=== PATIENT | male | born 1960 | race Asian ===

== ENCOUNTER 2017-05-06 17:57 | Inpatient (IN) | payer OTHER ==
[~2017-05-06] VITALS: Ht 170.2 cm; Wt 49.0 kg
[~2017-05-06 17:57] MED LIST: AMIO200T44 PO; ASPI81TA42 PO; ATOR40TA28 PO; CARV6 PO; DSS100 PO; FURO40 PO; INSLAN SQ; INSNOV SQ; LISI-662 PO; NIFE90TA45 PO
[2017-05-06 18:52] LABS: GLUCOSE,POINT OF CARE 169 MG/DL (70-110)
[2017-05-06] MEDS ORDERED: HYDROmorphone 2 MG/ML SYRINGE IVP ONE (19:15)
[2017-05-06] MEDS ORDERED: ACETAMINOPHEN 500 MG TABLET PO ONE (19:15)
[2017-05-06] MEDS ORDERED: ONDANSETRON HCL 4 MG/2 ML VIAL IVP ONE (19:15)
[2017-05-06] MEDS ORDERED: SODIUM CHLORIDE 0.9% 250 ML IV ONE (19:15)
[2017-05-06 20:02] LABS: EOSINOPHILS % (AUTO) 0.1 % (1.0-6.0); HEMATOCRIT 28.9 % (41-53); HEMOGLOBIN 9.5 g/dL (13.5-17.5); LYMPHOCYTES # (AUTO) 0.2 K/uL (1.0-4.8); MEAN CORPUSCULAR HEMOGLOBIN 31.7 pg (26.0-34.0); MEAN CORPUSCULAR HGB CONC 32.9 G/dL (31.0-37.0); MEAN CORPUSCULAR VOLUME 96 fL (80-100); MONOCYTES # (AUTO) 0.5 K/uL (0.1-1.0); MONOCYTES % (AUTO) 6.9 % (2.0-9.0); NEUTROPHILS # (AUTO) 6.3 K/uL (1.8-7.7); PLATELET COUNT (AUTO) 217 K/uL (150-450); RED CELL DISTRIBUTION WIDTH 16.7 % (11.5-14.5)
[2017-05-06 20:04] LABS: CALCIUM, TOTAL 8.4 mg/dL (8.8-10.5); CREATININE 2.45 mg/dL (0.60-1.30); POTASSIUM 3.7 mmol/L (3.5-5.1)
[2017-05-06 20:10] LABS: ALBUMIN 2.9 g/dL (3.4-5.0); BILIRUBIN,TOTAL 0.8 mg/dL (0.1-1.0); TOTAL PROTEIN, SERUM 6.6 g/dL (6.4-8.2)
[2017-05-06 20:19] LABS: LACTIC ACID 0.6 mmol/L (0.4-2.0)
[2017-05-06 20:21] LABS: RBC MORPHOLOGY COMMENT NORMAL RBC MORPH
[2017-05-06] MEDS ORDERED: ACETAMINOPHEN 325 MG TABLET PO PRN ×2 (20:45→21:30)
[2017-05-06] MEDS ORDERED: CefTRIAXone 1 GM/DEXTROSE 50 ML IV ONE (20:45)
[2017-05-06] MEDS ORDERED: ONDANSETRON HCL 4 MG/2 ML VIAL IVP PRN (20:45)
[2017-05-06] MEDS ORDERED: 0.9% SODIUM CHLORIDE 10 ML SYRINGE IVP PRN (20:45)
[2017-05-06 21:08] LABS: PROCALCITONIN (PCT) 6.14 ng/mL (<0.50)
[2017-05-06] MEDS ORDERED: DEXTROSE 50%-WATER 25 GM/50 ML SYRINGE IVP PRN (21:30)
[2017-05-06] MEDS ORDERED: ALBUTEROL SULFATE 2.5 MG/0.5 ML NEB SOLUTION NEB PRN (21:30)
[2017-05-06 21:51] VITALS: BP 105/52
[2017-05-07] VITALS (7 sets, daily range): BP systolic 100–131; BP diastolic 49–59
[2017-05-07] MEDS: INSULIN ASPART 100 UNITS/ML SQ PRN ×2 (06:11→22:08)
[2017-05-07 06:50] LABS: EOSINOPHILS % (AUTO) 0.3 % (1.0-6.0); HEMATOCRIT 28.5 % (41-53); HEMOGLOBIN 9.3 g/dL (13.5-17.5); LYMPHOCYTES # (AUTO) 0.3 K/uL (1.0-4.8); LYMPHOCYTES % (AUTO) 4.2 % (22.0-44.0); MEAN CORPUSCULAR HGB CONC 32.7 G/dL (31.0-37.0); MEAN CORPUSCULAR VOLUME 98 fL (80-100); MONOCYTES # (AUTO) 0.6 K/uL (0.1-1.0); MONOCYTES % (AUTO) 8.4 % (2.0-9.0); NEUTROPHILS # (AUTO) 6.5 K/uL (1.8-7.7); PLATELET COUNT (AUTO) 193 K/uL (150-450); RED BLOOD CELL COUNT(AUTO) 2.91 MIL/uL (4.50-5.90); RED CELL DISTRIBUTION WIDTH 16.9 % (11.5-14.5); WHITE BLOOD COUNT (AUTO) 7.5 K/uL (4.5-11.0)
[2017-05-07 07:01] LABS: NEUTROPHILS % (AUTO) 87.1 % (40.0-70.0)
[2017-05-07 07:37] LABS: CALCIUM, TOTAL 8.1 mg/dL (8.8-10.5); CREATININE 2.89 mg/dL (0.60-1.30); POTASSIUM 3.5 mmol/L (3.5-5.1)
[2017-05-07] MEDS: PANTOPRAZOLE SODIUM 40 MG DR TABLET PO SCH (08:24)
[2017-05-07] MEDS: HEPARIN SODIUM,PORCINE 5,000 UNITS/ML VIAL SQ SCH ×2 (08:25→20:22)
[2017-05-07] MEDS: ASPIRIN 81 MG CHEWABLE TABLET PO SCH (08:25)
[2017-05-07] MEDS: DOCUSATE SODIUM 100 MG CAPSULE PO SCH ×2 (08:25→20:22)
[2017-05-07 08:57] LABS: GLUCOSE,POINT OF CARE 156 MG/DL (70-110)
[2017-05-07 18:02] LABS: GLUCOSE,POINT OF CARE 135 MG/DL (70-110)
[2017-05-07 18:07] LABS: GLUCOSE,POINT OF CARE 138 MG/DL (70-110)
[2017-05-07] MEDS ORDERED: SODIUM CHLORIDE 0.9% 50 ML ONE (20:20)
[2017-05-07] MEDS: OXYGEN THERAPY IH SCH (20:21)
[2017-05-07] MEDS: ATORVASTATIN CALCIUM 20 MG TABLET PO SCH (20:22)
[2017-05-07] MEDS ORDERED: CefTRIAXone 1 GM/DEXTROSE 50 ML IV SCH (21:00)
[2017-05-07 21:47] LABS: GLUCOSE,POINT OF CARE 129 MG/DL (70-110)
[2017-05-08] MEDS ORDERED: PIPERACILLIN SODIUM/TAZOBACTAM 0.75 GM in DEXTROSE 5%-WATER 50 ML IV PRN (02:45)
[2017-05-08 04:21] VITALS: BP 140/63
[2017-05-08] MEDS: BISACODYL 10 MG RECTAL RECTAL SUPPOSITORY PR PRN (06:38)
[2017-05-08 06:47] LABS: GLUCOSE,POINT OF CARE 115 MG/DL (70-110)
[2017-05-08 07:23] VITALS: BP 144/64
[2017-05-08] MEDS: OXYGEN THERAPY IH SCH ×2 (08:20→20:18)
[2017-05-08] MEDS: PIPERACILLIN SODIUM/TAZOBACTAM 2.25 GM in DEXTROSE 5%-WATER 50 ML IV SCH ×2 (08:21→20:20)
[2017-05-08] MEDS: DOCUSATE SODIUM 100 MG CAPSULE PO SCH ×2 (08:47→20:20)
[2017-05-08] MEDS: PANTOPRAZOLE SODIUM 40 MG DR TABLET PO SCH (08:47)
[2017-05-08] MEDS: HEPARIN SODIUM,PORCINE 5,000 UNITS/ML VIAL SQ SCH ×2 (08:49→20:21)
[2017-05-08] MEDS: OxyCODONE HCL/ACETAMINOPHEN 5-325 MG TABLET PO PRN (08:49)
[2017-05-08] MEDS: ASPIRIN 81 MG CHEWABLE TABLET PO SCH (09:00)
[2017-05-08] MEDS ORDERED: -POST HEMODIALYSIS NOTE- MISC SCH (09:00)
[2017-05-08] MEDS ORDERED: BARIUM SULFATE 0.1% SUSPENSION 450 ML BOTTLE ONE (10:07)
[2017-05-08 11:30] VITALS: BP 138/64
[2017-05-08 15:38] VITALS: BP 142/66
[2017-05-08 19:30] VITALS: BP 149/72
[2017-05-08] MEDS: ATORVASTATIN CALCIUM 20 MG TABLET PO SCH (20:20)
[2017-05-09 00:03] VITALS: BP 146/64
[2017-05-09 02:07] LABS: GLUCOSE,POINT OF CARE 113 MG/DL (70-110)
[2017-05-09 02:11] LABS: GLUCOSE,POINT OF CARE 118 MG/DL (70-110)
[2017-05-09 02:22] LABS: GLUCOSE,POINT OF CARE 110 MG/DL (70-110)
[2017-05-09 04:06] VITALS: BP 150/70
[2017-05-09] MEDS ORDERED: VANCOMYCIN HCL 1 GM/D5% WATER 200 ML IV PRN (06:30)
[2017-05-09 06:36] LABS: HEMATOCRIT 30.2 % (41-53); HEMOGLOBIN 10.1 g/dL (13.5-17.5); MEAN CORPUSCULAR HEMOGLOBIN 31.8 pg (26.0-34.0); MEAN CORPUSCULAR HGB CONC 33.2 G/dL (31.0-37.0); MEAN CORPUSCULAR VOLUME 96 fL (80-100); PLATELET COUNT (AUTO) 175 K/uL (150-450); RED BLOOD CELL COUNT(AUTO) 3.16 MIL/uL (4.50-5.90); RED CELL DISTRIBUTION WIDTH 17.2 % (11.5-14.5)
[2017-05-09 06:46] LABS: INR 1.3 (0.9-1.1); PROTHROMBIN TIME 13.2 SEC (9.4-11.6)
[2017-05-09 06:56] LABS: ALBUMIN 2.6 g/dL (3.4-5.0); BILIRUBIN,TOTAL 0.6 mg/dL (0.1-1.0); CALCIUM, TOTAL 8.1 mg/dL (8.8-10.5); CREATININE 4.36 mg/dL (0.60-1.30); POTASSIUM 4.2 mmol/L (3.5-5.1); TOTAL PROTEIN, SERUM 6.1 g/dL (6.4-8.2)
[2017-05-09] MEDS ORDERED: VANCOMYCIN HCL 1 GM/D5% WATER 200 ML IV ONE (07:30)
[2017-05-09 08:00] VITALS: BP 147/67
[2017-05-09 08:37] LABS: GLUCOSE,POINT OF CARE 98 MG/DL (70-110)
[2017-05-09] MEDS ORDERED: MANNITOL 25%-12.5 GM/50 ML VIAL IVP PRN (09:00)
[2017-05-09] MEDS ORDERED: LIDOCAINE HCL/PF 1% 2 ML VIAL ID PRN (09:00)
[2017-05-09 10:36] LABS: BAND NEUTROPHILS % (MANUAL) 15 % (1-5); LYMPHOCYTES % (MANUAL) 17 % (22-44); TOTAL CELLS COUNTED 100
[2017-05-09 10:37] LABS: RBC MORPHOLOGY COMMENT ABNORMAL RBC MORPH
[2017-05-09 11:29] VITALS: BP 148/77
[2017-05-09] MEDS ORDERED: VANCOMYCIN HCL 500 MG in DEXTROSE 5%-WATER 100 ML IV ONE (12:00)
[2017-05-09] MEDS: ASPIRIN 81 MG CHEWABLE TABLET PO SCH (13:07)
[2017-05-09] MEDS: DOCUSATE SODIUM 100 MG CAPSULE PO SCH ×2 (13:07→20:41)
[2017-05-09] MEDS: PANTOPRAZOLE SODIUM 40 MG DR TABLET PO SCH (13:07)
[2017-05-09] MEDS: EPOETIN ALFA 10,000 UNITS/ML VIAL SQ SCH (13:07)
[2017-05-09] MEDS: OXYGEN THERAPY IH SCH ×2 (13:07→20:41)
[2017-05-09] MEDS: HEPARIN SODIUM,PORCINE 5,000 UNITS/ML VIAL SQ SCH ×2 (13:08→20:42)
[2017-05-09 15:11] VITALS: BP 161/69
[2017-05-09] MEDS ORDERED: SODIUM CHLORIDE 0.9% 500 ML IV ONE (15:27)
[2017-05-09] MEDS: CefTRIAXone 1 GM/DEXTROSE 50 ML IV SCH (16:07)
[2017-05-09] MEDS ORDERED: LIDOCAINE HCL/PF 1% 2 ML VIAL IM ONE (16:57)
[2017-05-09 17:17] LABS: APPEARANCE,UNSPUN,BODY FLUID CLOUDY (CLEAR); COLOR,BODY FLUID YELLOW (LT YELLOW)
[2017-05-09 17:18] LABS: OTHER CELLS,BODY FLUID MESOTHELIALS
[2017-05-09] MEDS: INSULIN ASPART 100 UNITS/ML SQ PRN (17:52)
[2017-05-09 19:48] VITALS: BP 133/59
[2017-05-09 20:02] LABS: GLUCOSE,POINT OF CARE 126 MG/DL (70-110)
[2017-05-09] MEDS: ATORVASTATIN CALCIUM 20 MG TABLET PO SCH (20:41)
[2017-05-10 00:12] VITALS: BP 147/69
[2017-05-10 04:19] VITALS: BP 168/79
[2017-05-10 07:32] VITALS: BP 153/66
[2017-05-10] MEDS: HEPARIN SODIUM,PORCINE 5,000 UNITS/ML VIAL SQ SCH ×2 (08:47→20:11)
[2017-05-10] MEDS: OXYGEN THERAPY IH SCH ×2 (08:48→20:11)
[2017-05-10] MEDS: PANTOPRAZOLE SODIUM 40 MG DR TABLET PO SCH (08:52)
[2017-05-10] MEDS: DOCUSATE SODIUM 100 MG CAPSULE PO SCH ×2 (08:52→20:11)
[2017-05-10] MEDS: ASPIRIN 81 MG CHEWABLE TABLET PO SCH (08:52)
[2017-05-10] MEDS ORDERED: VANCOMYCIN HCL 1 GM/D5% WATER 200 ML IV ONE (09:00)
[2017-05-10 11:16] VITALS: BP 150/69
[2017-05-10] MEDS ORDERED: NYSTATIN 500,000 UNITS/5 ML SUSPENSION UDCUP PO SCH ×2 (11:45→12:00)
[2017-05-10] MEDS: INSULIN ASPART 100 UNITS/ML SQ PRN ×4 (12:21→20:20)
[2017-05-10] MEDS: CefTRIAXone 1 GM/DEXTROSE 50 ML IV SCH (12:38)
[2017-05-10 15:32] VITALS: BP 135/66
[2017-05-10] MEDS: NYSTATIN 500,000 UNITS/5 ML SUSPENSION UDCUP PO SCH (17:09)
[2017-05-10 19:43] VITALS: BP 144/67
[2017-05-10] MEDS: ATORVASTATIN CALCIUM 20 MG TABLET PO SCH (20:11)
[2017-05-11] VITALS (7 sets, daily range): BP systolic 133–160; BP diastolic 60–79
[2017-05-11] MEDS: NYSTATIN 500,000 UNITS/5 ML SUSPENSION UDCUP PO SCH ×4 (00:27→18:03)
[2017-05-11 01:36] LABS: GLUCOSE COMMENT 1 Received Meds; GLUCOSE,POINT OF CARE 166 MG/DL (70-110)
[2017-05-11 01:46] LABS: GLUCOSE COMMENT 1 Received Meds; GLUCOSE,POINT OF CARE 179 MG/DL (70-110)
[2017-05-11 06:10] LABS: BASOPHILS % (AUTO) 0.1 % (0.0-2.0); HEMATOCRIT 30.6 % (41-53); HEMOGLOBIN 10.3 g/dL (13.5-17.5); LYMPHOCYTES # (AUTO) 0.4 K/uL (1.0-4.8); LYMPHOCYTES % (AUTO) 4.9 % (22.0-44.0); MEAN CORPUSCULAR HEMOGLOBIN 31.9 pg (26.0-34.0); MEAN CORPUSCULAR HGB CONC 33.6 G/dL (31.0-37.0); MEAN CORPUSCULAR VOLUME 95 fL (80-100); MONOCYTES # (AUTO) 0.5 K/uL (0.1-1.0); MONOCYTES % (AUTO) 6.5 % (2.0-9.0); NEUTROPHILS # (AUTO) 6.3 K/uL (1.8-7.7); PLATELET COUNT (AUTO) 183 K/uL (150-450); RED BLOOD CELL COUNT(AUTO) 3.22 MIL/uL (4.50-5.90); RED CELL DISTRIBUTION WIDTH 17.2 % (11.5-14.5); WHITE BLOOD COUNT (AUTO) 7.3 K/uL (4.5-11.0)
[2017-05-11 06:56] LABS: NEUTROPHILS % (AUTO) 86.5 % (40.0-70.0)
[2017-05-11 07:18] LABS: CALCIUM, TOTAL 8.1 mg/dL (8.8-10.5); CREATININE 4.18 mg/dL (0.60-1.30); POTASSIUM 3.9 mmol/L (3.5-5.1)
[2017-05-11 07:50] LABS: RBC MORPHOLOGY COMMENT ABNORMAL RBC MORPH
[2017-05-11] MEDS: DOCUSATE SODIUM 100 MG CAPSULE PO SCH ×2 (07:58→20:08)
[2017-05-11] MEDS: PANTOPRAZOLE SODIUM 40 MG DR TABLET PO SCH (07:58)
[2017-05-11] MEDS: ASPIRIN 81 MG CHEWABLE TABLET PO SCH (07:58)
[2017-05-11] MEDS: EPOETIN ALFA 10,000 UNITS/ML VIAL SQ SCH (07:58)
[2017-05-11] MEDS: HEPARIN SODIUM,PORCINE 5,000 UNITS/ML VIAL SQ SCH ×2 (07:58→20:08)
[2017-05-11] MEDS: OXYGEN THERAPY IH SCH ×2 (07:59→20:17)
[2017-05-11] MEDS ORDERED: SODIUM CHLORIDE 0.9% 2,000 ML IV ONE (08:21)
[2017-05-11] MEDS ORDERED: ALBUMIN HUMAN 25%-12.5GM/50ML IV BOTTLE IV PRN (10:15)
[2017-05-11] MEDS ORDERED: MANNITOL 25%-12.5 GM/50 ML VIAL IVP PRN (10:15)
[2017-05-11] MEDS ORDERED: LIDOCAINE HCL/PF 1% 2 ML VIAL ID PRN (10:15)
[2017-05-11] MEDS: VITAMIN B COMP/VIT C/FOLIC ACID CAPSULE PO SCH (11:30)
[2017-05-11] MEDS ORDERED: LIDOCAINE HCL/PF 1% 2 ML VIAL IM ONE (12:14)
[2017-05-11] MEDS: CefTRIAXone 1 GM/DEXTROSE 50 ML IV SCH (13:45)
[2017-05-11] MEDS: INSULIN ASPART 100 UNITS/ML SQ PRN (18:04)
[2017-05-11] MEDS: ATORVASTATIN CALCIUM 20 MG TABLET PO SCH (20:08)
[2017-05-11 23:12] LABS: TOTAL PROTEIN,BODY FLUID,REF 3.5 g/dL
[2017-05-12] MEDS: NYSTATIN 500,000 UNITS/5 ML SUSPENSION UDCUP PO SCH ×5 (00:30→23:24)
[2017-05-12 04:52] VITALS: BP 148/70
[2017-05-12 06:33] LABS: GLUCOSE,POINT OF CARE 116 MG/DL (70-110)
[2017-05-12 07:18] VITALS: BP 162/69
[2017-05-12] MEDS: OXYGEN THERAPY IH SCH ×2 (08:19→20:10)
[2017-05-12] MEDS: DOCUSATE SODIUM 100 MG CAPSULE PO SCH ×2 (08:20→20:05)
[2017-05-12] MEDS: PANTOPRAZOLE SODIUM 40 MG DR TABLET PO SCH (08:20)
[2017-05-12] MEDS: VITAMIN B COMP/VIT C/FOLIC ACID CAPSULE PO SCH (08:20)
[2017-05-12] MEDS: ASPIRIN 81 MG CHEWABLE TABLET PO SCH (08:20)
[2017-05-12] MEDS: HEPARIN SODIUM,PORCINE 5,000 UNITS/ML VIAL SQ SCH ×2 (08:21→20:05)
[2017-05-12 11:22] VITALS: BP 144/65
[2017-05-12] MEDS: INSULIN ASPART 100 UNITS/ML SQ PRN ×3 (12:12→20:33)
[2017-05-12] MEDS: CefTRIAXone 1 GM/DEXTROSE 50 ML IV SCH (12:55)
[2017-05-12 15:45] VITALS: BP 150/64
[2017-05-12 17:42] LABS: GLUCOSE,POINT OF CARE 158 MG/DL (70-110)
[2017-05-12 17:42] LABS: GLUCOSE,POINT OF CARE 123 MG/DL (70-110)
[2017-05-12 19:25] VITALS: BP 144/68
[2017-05-12 19:52] LABS: GLUCOSE,POINT OF CARE 149 MG/DL (70-110)
[2017-05-12] MEDS: ATORVASTATIN CALCIUM 20 MG TABLET PO SCH (20:05)
[2017-05-12 23:26] VITALS: BP 152/62
[2017-05-13 04:24] VITALS: BP 144/72
[2017-05-13 06:24] LABS: BASOPHILS % (AUTO) 0.1 % (0.0-2.0); EOSINOPHILS % (AUTO) 1.4 % (1.0-6.0); HEMATOCRIT 29.2 % (41-53); HEMOGLOBIN 9.9 g/dL (13.5-17.5); LYMPHOCYTES # (AUTO) 0.3 K/uL (1.0-4.8); LYMPHOCYTES % (AUTO) 3.4 % (22.0-44.0); MEAN CORPUSCULAR HEMOGLOBIN 31.7 pg (26.0-34.0); MEAN CORPUSCULAR HGB CONC 33.7 G/dL (31.0-37.0); MEAN CORPUSCULAR VOLUME 94 fL (80-100); MONOCYTES # (AUTO) 0.5 K/uL (0.1-1.0); MONOCYTES % (AUTO) 5.5 % (2.0-9.0); NEUTROPHILS # (AUTO) 7.6 K/uL (1.8-7.7); PLATELET COUNT (AUTO) 230 K/uL (150-450); RED BLOOD CELL COUNT(AUTO) 3.11 MIL/uL (4.50-5.90); WHITE BLOOD COUNT (AUTO) 8.4 K/uL (4.5-11.0)
[2017-05-13] MEDS: BISACODYL 10 MG RECTAL RECTAL SUPPOSITORY PR PRN (06:24)
[2017-05-13] MEDS: NYSTATIN 500,000 UNITS/5 ML SUSPENSION UDCUP PO SCH ×4 (06:24→23:37)
[2017-05-13 06:33] LABS: CREATININE 4.01 mg/dL (0.60-1.30); POTASSIUM 3.8 mmol/L (3.5-5.1)
[2017-05-13 06:53] LABS: NEUTROPHILS % (AUTO) 89.6 % (40.0-70.0)
[2017-05-13 07:24] VITALS: BP 171/78
[2017-05-13] MEDS: OXYGEN THERAPY IH SCH ×2 (08:00→20:21)
[2017-05-13] MEDS: VITAMIN B COMP/VIT C/FOLIC ACID CAPSULE PO SCH (09:00)
[2017-05-13 09:02] LABS: GLUCOSE COMMENT 1 Received Meds; GLUCOSE,POINT OF CARE 146 MG/DL (70-110)
[2017-05-13 09:02] LABS: GLUCOSE,POINT OF CARE 114 MG/DL (70-110)
[2017-05-13] MEDS ORDERED: LIDOCAINE HCL/PF 1% 2 ML VIAL ID PRN (10:45)
[2017-05-13] MEDS ORDERED: MANNITOL 25%-12.5 GM/50 ML VIAL IVP PRN (10:45)
[2017-05-13 11:29] VITALS: BP 170/89
[2017-05-13] MEDS: OxyCODONE HCL/ACETAMINOPHEN 5-325 MG TABLET PO PRN (12:02)
[2017-05-13] MEDS: ASPIRIN 81 MG CHEWABLE TABLET PO SCH (15:07)
[2017-05-13] MEDS: DOCUSATE SODIUM 100 MG CAPSULE PO SCH ×2 (15:07→20:13)
[2017-05-13] MEDS: PANTOPRAZOLE SODIUM 40 MG DR TABLET PO SCH (15:07)
[2017-05-13] MEDS: CefTRIAXone 1 GM/DEXTROSE 50 ML IV SCH (15:08)
[2017-05-13] MEDS: EPOETIN ALFA 10,000 UNITS/ML VIAL SQ SCH (15:08)
[2017-05-13] MEDS: HEPARIN SODIUM,PORCINE 5,000 UNITS/ML VIAL SQ SCH ×2 (15:08→20:13)
[2017-05-13 15:45] VITALS: BP 158/72
[2017-05-13] MEDS ORDERED: LIDOCAINE HCL/PF 1% 2 ML VIAL IM ONE (18:28)
[2017-05-13 19:40] VITALS: BP 116/74
[2017-05-13 20:22] LABS: GLUCOSE,POINT OF CARE 118 MG/DL (70-110)
[2017-05-13 20:27] LABS: GLUCOSE,POINT OF CARE 121 MG/DL (70-110)
[2017-05-13 20:27] LABS: GLUCOSE,POINT OF CARE 158 MG/DL (70-110)
[2017-05-13] MEDS: ATORVASTATIN CALCIUM 20 MG TABLET PO SCH (20:29)
[2017-05-13 23:36] VITALS: BP 134/64
[2017-05-14 04:35] VITALS: BP 124/63
[2017-05-14] MEDS: NYSTATIN 500,000 UNITS/5 ML SUSPENSION UDCUP PO SCH ×3 (05:45→17:50)
[2017-05-14 07:39] VITALS: BP 142/71
[2017-05-14] MEDS: OXYGEN THERAPY IH SCH ×2 (08:35→20:00)
[2017-05-14] MEDS: DOCUSATE SODIUM 100 MG CAPSULE PO SCH ×2 (08:36→19:59)
[2017-05-14] MEDS: PANTOPRAZOLE SODIUM 40 MG DR TABLET PO SCH (08:36)
[2017-05-14] MEDS: VITAMIN B COMP/VIT C/FOLIC ACID CAPSULE PO SCH (08:36)
[2017-05-14] MEDS: ASPIRIN 81 MG CHEWABLE TABLET PO SCH (08:36)
[2017-05-14] MEDS: HEPARIN SODIUM,PORCINE 5,000 UNITS/ML VIAL SQ SCH ×2 (08:36→20:01)
[2017-05-14 11:55] VITALS: BP 136/68
[2017-05-14] MEDS: INSULIN ASPART 100 UNITS/ML SQ PRN ×2 (11:55→20:10)
[2017-05-14] MEDS: CefTRIAXone 1 GM/DEXTROSE 50 ML IV SCH (13:19)
[2017-05-14 15:45] VITALS: BP 138/70
[2017-05-14 19:41] VITALS: BP 133/69
[2017-05-14] MEDS: ATORVASTATIN CALCIUM 20 MG TABLET PO SCH (19:59)
[2017-05-14 22:42] LABS: GLUCOSE COMMENT 1 Received Meds; GLUCOSE,POINT OF CARE 167 MG/DL (70-110)
[2017-05-14 22:42] LABS: GLUCOSE COMMENT 1 Received Meds; GLUCOSE,POINT OF CARE 148 MG/DL (70-110)
[2017-05-15] VITALS (7 sets, daily range): BP systolic 136–158; BP diastolic 65–75
[2017-05-15] MEDS: NYSTATIN 500,000 UNITS/5 ML SUSPENSION UDCUP PO SCH ×5 (00:17→23:52)
[2017-05-15 06:35] LABS: BASOPHILS % (AUTO) 0.1 % (0.0-2.0); EOSINOPHILS % (AUTO) 0.1 % (1.0-6.0); HEMOGLOBIN 9.4 g/dL (13.5-17.5); LYMPHOCYTES # (AUTO) 0.4 K/uL (1.0-4.8); LYMPHOCYTES % (AUTO) 2.8 % (22.0-44.0); MEAN CORPUSCULAR HEMOGLOBIN 32.4 pg (26.0-34.0); MEAN CORPUSCULAR HGB CONC 34.7 G/dL (31.0-37.0); MEAN CORPUSCULAR VOLUME 93 fL (80-100); MONOCYTES # (AUTO) 0.3 K/uL (0.1-1.0); MONOCYTES % (AUTO) 2.7 % (2.0-9.0); PLATELET COUNT (AUTO) 278 K/uL (150-450); RED BLOOD CELL COUNT(AUTO) 2.89 MIL/uL (4.50-5.90); RED CELL DISTRIBUTION WIDTH 17.4 % (11.5-14.5); WHITE BLOOD COUNT (AUTO) 12.7 K/uL (4.5-11.0)
[2017-05-15 06:55] LABS: NEUTROPHILS % (AUTO) 94.3 % (40.0-70.0)
[2017-05-15 08:15] LABS: CALCIUM, TOTAL 8.2 mg/dL (8.8-10.5); CREATININE 3.91 mg/dL (0.60-1.30); POTASSIUM 4.1 mmol/L (3.5-5.1)
[2017-05-15] MEDS: DOCUSATE SODIUM 100 MG CAPSULE PO SCH ×2 (08:39→20:52)
[2017-05-15] MEDS: PANTOPRAZOLE SODIUM 40 MG DR TABLET PO SCH (08:39)
[2017-05-15] MEDS: VITAMIN B COMP/VIT C/FOLIC ACID CAPSULE PO SCH (08:39)
[2017-05-15] MEDS: ASPIRIN 81 MG CHEWABLE TABLET PO SCH (08:39)
[2017-05-15] MEDS: HEPARIN SODIUM,PORCINE 5,000 UNITS/ML VIAL SQ SCH ×2 (08:40→20:52)
[2017-05-15] MEDS: OXYGEN THERAPY IH SCH ×2 (08:44→20:51)
[2017-05-15 08:58] LABS: RBC MORPHOLOGY COMMENT ABNORMAL RBC MORPH
[2017-05-15] MEDS: INSULIN ASPART 100 UNITS/ML SQ PRN (12:16)
[2017-05-15] MEDS: CefTRIAXone 1 GM/DEXTROSE 50 ML IV SCH (12:18)
[2017-05-15] MEDS: ATORVASTATIN CALCIUM 20 MG TABLET PO SCH (20:52)
[2017-05-16 05:07] VITALS: BP 149/73
[2017-05-16] MEDS: NYSTATIN 500,000 UNITS/5 ML SUSPENSION UDCUP PO SCH ×3 (06:33→18:05)
[2017-05-16 07:18] VITALS: BP 157/77
[2017-05-16 08:49] LABS: EOSINOPHILS % (AUTO) 0 % (1.0-6.0); HEMATOCRIT 28.7 % (41-53); HEMOGLOBIN 9.6 g/dL (13.5-17.5); LYMPHOCYTES # (AUTO) 0.3 K/uL (1.0-4.8); LYMPHOCYTES % (AUTO) 2.3 % (22.0-44.0); MEAN CORPUSCULAR HEMOGLOBIN 31.5 pg (26.0-34.0); MEAN CORPUSCULAR HGB CONC 33.4 G/dL (31.0-37.0); MEAN CORPUSCULAR VOLUME 94 fL (80-100); MONOCYTES # (AUTO) 0.3 K/uL (0.1-1.0); MONOCYTES % (AUTO) 2.4 % (2.0-9.0); NEUTROPHILS # (AUTO) 12.5 K/uL (1.8-7.7); PLATELET COUNT (AUTO) 209 K/uL (150-450); RED BLOOD CELL COUNT(AUTO) 3.04 MIL/uL (4.50-5.90); RED CELL DISTRIBUTION WIDTH 17.2 % (11.5-14.5); WHITE BLOOD COUNT (AUTO) 13.2 K/uL (4.5-11.0)
[2017-05-16 08:55] LABS: NEUTROPHILS % (AUTO) 95.3 % (40.0-70.0)
[2017-05-16] MEDS ORDERED: SODIUM CHLORIDE 0.9% 2,000 ML IV ONE (09:19)
[2017-05-16 09:47] LABS: RBC MORPHOLOGY COMMENT ABNORMAL RBC MORPH
[2017-05-16] MEDS: INSULIN ASPART 100 UNITS/ML SQ PRN ×2 (12:02→18:07)
[2017-05-16] MEDS: DOCUSATE SODIUM 100 MG CAPSULE PO SCH ×2 (12:05→21:58)
[2017-05-16 12:07] VITALS: BP 138/72
[2017-05-16] MEDS: OXYGEN THERAPY IH SCH ×2 (14:28→19:43)
[2017-05-16] MEDS: ASPIRIN 81 MG CHEWABLE TABLET PO SCH (14:28)
[2017-05-16] MEDS: VITAMIN B COMP/VIT C/FOLIC ACID CAPSULE PO SCH (14:28)
[2017-05-16] MEDS: PANTOPRAZOLE SODIUM 40 MG DR TABLET PO SCH (14:28)
[2017-05-16] MEDS: EPOETIN ALFA 10,000 UNITS/ML VIAL SQ SCH (14:29)
[2017-05-16] MEDS: HEPARIN SODIUM,PORCINE 5,000 UNITS/ML VIAL SQ SCH ×2 (14:31→21:58)
[2017-05-16] MEDS: CefTRIAXone 1 GM/DEXTROSE 50 ML IV SCH (14:32)
[2017-05-16 16:09] VITALS: BP 159/77
[2017-05-16 19:39] VITALS: BP 145/75
[2017-05-16 21:28] LABS: GLUCOSE,POINT OF CARE 119 MG/DL (70-110)
[2017-05-16 21:28] LABS: GLUCOSE,POINT OF CARE 153 MG/DL (70-110)
[2017-05-16 21:28] LABS: GLUCOSE COMMENT 1 Received Meds; GLUCOSE,POINT OF CARE 163 MG/DL (70-110)
[2017-05-16 21:28] LABS: GLUCOSE,POINT OF CARE 129 MG/DL (70-110)
[2017-05-16] MEDS: ATORVASTATIN CALCIUM 20 MG TABLET PO SCH (21:58)
[2017-05-17] MEDS: NYSTATIN 500,000 UNITS/5 ML SUSPENSION UDCUP PO SCH ×4 (00:08→17:44)
[2017-05-17 00:19] VITALS: BP 150/71
[2017-05-17 04:29] VITALS: BP 137/66
[2017-05-17] MEDS: OxyCODONE HCL/ACETAMINOPHEN 5-325 MG TABLET PO PRN ×2 (04:32→20:06)
[2017-05-17 07:37] VITALS: BP 138/70
[2017-05-17 07:37] LABS: EOSINOPHILS # (AUTO) 0.01 K/uL (0.00-0.70); EOSINOPHILS % (AUTO) 0.05 % (1.0-6.0); HEMATOCRIT 27.5 % (41-53); HEMOGLOBIN 8.8 g/dL (13.5-17.5); LYMPHOCYTES # (AUTO) 0.2 K/uL (1.0-4.8); LYMPHOCYTES % (AUTO) 2.2 % (22.0-44.0); MEAN CORPUSCULAR HEMOGLOBIN 30.7 pg (26.0-34.0); MEAN CORPUSCULAR HGB CONC 32.1 G/dL (31.0-37.0); MEAN CORPUSCULAR VOLUME 96 fL (80-100); MONOCYTES # (AUTO) 0.1 K/uL (0.1-1.0); MONOCYTES % (AUTO) 0.9 % (2.0-9.0); NEUTROPHILS # (AUTO) 10.3 K/uL (1.8-7.7); PLATELET COUNT (AUTO) 225 K/uL (150-450); RED BLOOD CELL COUNT(AUTO) 2.87 MIL/uL (4.50-5.90); RED CELL DISTRIBUTION WIDTH 17.3 % (11.5-14.5); WHITE BLOOD COUNT (AUTO) 10.7 K/uL (4.5-11.0)
[2017-05-17 07:59] LABS: BILIRUBIN,TOTAL 0.5 mg/dL (0.1-1.0); CALCIUM, TOTAL 8.3 mg/dL (8.8-10.5); CREATININE 3.18 mg/dL (0.60-1.30); POTASSIUM 3.9 mmol/L (3.5-5.1)
[2017-05-17 08:13] LABS: NEUTROPHILS % (AUTO) 96.8 % (40.0-70.0)
[2017-05-17 09:31] LABS: INR 1.2 (0.9-1.1); PROTHROMBIN TIME 12.9 SEC (9.4-11.6)
[2017-05-17 09:39] LABS: RBC MORPHOLOGY COMMENT ABNORMAL RBC MORPH
[2017-05-17 11:18] VITALS: BP 140/70
[2017-05-17] MEDS: INSULIN ASPART 100 UNITS/ML SQ PRN ×2 (12:04→17:45)
[2017-05-17] MEDS: PANTOPRAZOLE SODIUM 40 MG DR TABLET PO SCH (12:07)
[2017-05-17] MEDS: ASPIRIN 81 MG CHEWABLE TABLET PO SCH (12:07)
[2017-05-17] MEDS: DOCUSATE SODIUM 100 MG CAPSULE PO SCH ×2 (12:07→20:05)
[2017-05-17] MEDS: VITAMIN B COMP/VIT C/FOLIC ACID CAPSULE PO SCH (12:07)
[2017-05-17] MEDS: HEPARIN SODIUM,PORCINE 5,000 UNITS/ML VIAL SQ SCH ×2 (12:18→20:06)
[2017-05-17] MEDS: OXYGEN THERAPY IH SCH (12:19)
[2017-05-17] MEDS ORDERED: SODIUM CHLORIDE 0.9% 500 ML IV ONE (13:59)
[2017-05-17] MEDS: CefTRIAXone 1 GM/DEXTROSE 50 ML IV SCH (14:47)
[2017-05-17 15:04] VITALS: BP 135/59
[2017-05-17 17:19] LABS: APPEARANCE,UNSPUN,BODY FLUID HAZY (CLEAR); COLOR,BODY FLUID YELLOW (LT YELLOW)
[2017-05-17 17:20] LABS: OTHER CELLS,BODY FLUID 9; PH, BODY FLUID 7
[2017-05-17 19:32] VITALS: BP 128/62
[2017-05-17] MEDS: ATORVASTATIN CALCIUM 20 MG TABLET PO SCH (20:06)
[2017-05-18] VITALS (7 sets, daily range): BP systolic 108–141; BP diastolic 55–72
[2017-05-18] MEDS: NYSTATIN 500,000 UNITS/5 ML SUSPENSION UDCUP PO SCH ×4 (05:39→17:48)
[2017-05-18] MEDS: PANTOPRAZOLE SODIUM 40 MG DR TABLET PO SCH (08:56)
[2017-05-18] MEDS: ASPIRIN 81 MG CHEWABLE TABLET PO SCH (08:56)
[2017-05-18] MEDS: VITAMIN B COMP/VIT C/FOLIC ACID CAPSULE PO SCH (08:56)
[2017-05-18] MEDS: DOCUSATE SODIUM 100 MG CAPSULE PO SCH ×2 (08:56→20:05)
[2017-05-18] MEDS: HEPARIN SODIUM,PORCINE 5,000 UNITS/ML VIAL SQ SCH ×2 (08:57→20:05)
[2017-05-18] MEDS: EPOETIN ALFA 10,000 UNITS/ML VIAL SQ SCH (08:57)
[2017-05-18] MEDS: INSULIN ASPART 100 UNITS/ML SQ PRN ×2 (12:47→21:18)
[2017-05-18] MEDS: CefTRIAXone 1 GM/DEXTROSE 50 ML IV SCH (12:48)
[2017-05-18] MEDS ORDERED: SODIUM CHLORIDE 0.9% 2,000 ML IV ONE (13:22)
[2017-05-18 14:43] LABS: GLUCOSE COMMENT 1 Received Meds; GLUCOSE,POINT OF CARE 145 MG/DL (70-110)
[2017-05-18 14:43] LABS: GLUCOSE COMMENT 1 Received Meds; GLUCOSE,POINT OF CARE 160 MG/DL (70-110)
[2017-05-18 14:43] LABS: GLUCOSE,POINT OF CARE 142 MG/DL (70-110)
[2017-05-18 14:43] LABS: GLUCOSE,POINT OF CARE 119 MG/DL (70-110)
[2017-05-18 14:43] LABS: GLUCOSE COMMENT 1 Received Meds; GLUCOSE,POINT OF CARE 163 MG/DL (70-110)
[2017-05-18 14:43] LABS: GLUCOSE,POINT OF CARE 116 MG/DL (70-110)
[2017-05-18 20:03] LABS: GLUCOSE,POINT OF CARE 130 MG/DL (70-110)
[2017-05-18 20:03] LABS: GLUCOSE,POINT OF CARE 139 MG/DL (70-110)
[2017-05-18 20:03] LABS: GLUCOSE,POINT OF CARE 124 MG/DL (70-110)
[2017-05-18 20:03] LABS: GLUCOSE,POINT OF CARE 114 MG/DL (70-110)
[2017-05-18 20:03] LABS: GLUCOSE,POINT OF CARE 150 MG/DL (70-110)
[2017-05-18 20:03] LABS: GLUCOSE COMMENT 1 Received Meds; GLUCOSE,POINT OF CARE 145 MG/DL (70-110)
[2017-05-18 20:03] LABS: GLUCOSE COMMENT 1 Received Meds; GLUCOSE,POINT OF CARE 171 MG/DL (70-110)
[2017-05-18 20:04] LABS: GLUCOSE,POINT OF CARE 134 MG/DL (70-110)
[2017-05-18 20:04] LABS: GLUCOSE,POINT OF CARE 105 MG/DL (70-110)
[2017-05-18 20:04] LABS: GLUCOSE,POINT OF CARE 83 MG/DL (70-110)
[2017-05-18 20:04] LABS: GLUCOSE COMMENT 1 Received Meds; GLUCOSE,POINT OF CARE 184 MG/DL (70-110)
[2017-05-18 20:04] LABS: GLUCOSE,POINT OF CARE 143 MG/DL (70-110)
[2017-05-18] MEDS: ATORVASTATIN CALCIUM 20 MG TABLET PO SCH (20:05)
[2017-05-18] MEDS ORDERED: LIDOCAINE HCL/PF 1% 2 ML VIAL IM ONE (23:08)
[2017-05-19] MEDS: NYSTATIN 500,000 UNITS/5 ML SUSPENSION UDCUP PO SCH ×4 (00:05→17:33)
[2017-05-19 04:30] VITALS: BP 123/62
[2017-05-19] MEDS: OxyCODONE HCL/ACETAMINOPHEN 5-325 MG TABLET PO PRN ×3 (04:47→21:23)
[2017-05-19 07:26] VITALS: BP 118/60
[2017-05-19] MEDS: ASPIRIN 81 MG CHEWABLE TABLET PO SCH (08:17)
[2017-05-19] MEDS: DOCUSATE SODIUM 100 MG CAPSULE PO SCH ×2 (08:18→21:23)
[2017-05-19] MEDS: VITAMIN B COMP/VIT C/FOLIC ACID CAPSULE PO SCH (08:18)
[2017-05-19] MEDS: HEPARIN SODIUM,PORCINE 5,000 UNITS/ML VIAL SQ SCH ×2 (08:18→21:22)
[2017-05-19] MEDS: PANTOPRAZOLE SODIUM 40 MG DR TABLET PO SCH (08:18)
[2017-05-19 10:52] VITALS: BP 112/64
[2017-05-19] MEDS: INSULIN ASPART 100 UNITS/ML SQ PRN ×2 (11:47→21:24)
[2017-05-19] MEDS: CefTRIAXone 1 GM/DEXTROSE 50 ML IV SCH (11:49)
[2017-05-19 15:51] VITALS: BP 131/63
[2017-05-19 19:27] VITALS: BP 123/57
[2017-05-19] MEDS: ATORVASTATIN CALCIUM 20 MG TABLET PO SCH (21:23)
[2017-05-19 23:14] VITALS: BP 128/61
[2017-05-20] MEDS: NYSTATIN 500,000 UNITS/5 ML SUSPENSION UDCUP PO SCH ×5 (00:43→23:33)
[2017-05-20] MEDS: OxyCODONE HCL/ACETAMINOPHEN 5-325 MG TABLET PO PRN ×3 (01:24→22:07)
[2017-05-20 02:02] LABS: GLUCOSE,POINT OF CARE 142 MG/DL (70-110)
[2017-05-20 02:02] LABS: GLUCOSE,POINT OF CARE 128 MG/DL (70-110)
[2017-05-20 05:07] VITALS: BP 127/67
[2017-05-20 07:29] VITALS: BP 123/58
[2017-05-20] MEDS: VITAMIN B COMP/VIT C/FOLIC ACID CAPSULE PO SCH (08:16)
[2017-05-20] MEDS: DOCUSATE SODIUM 100 MG CAPSULE PO SCH ×2 (08:16→21:38)
[2017-05-20] MEDS: HEPARIN SODIUM,PORCINE 5,000 UNITS/ML VIAL SQ SCH ×2 (08:16→21:38)
[2017-05-20] MEDS: ASPIRIN 81 MG CHEWABLE TABLET PO SCH (08:17)
[2017-05-20] MEDS: EPOETIN ALFA 10,000 UNITS/ML VIAL SQ SCH (08:17)
[2017-05-20] MEDS: PANTOPRAZOLE SODIUM 40 MG DR TABLET PO SCH (08:19)
[2017-05-20] MEDS ORDERED: SODIUM CHLORIDE 0.9% 2,000 ML IV ONE (08:41)
[2017-05-20] MEDS ORDERED: DOCUSATE SODIUM 100 MG CAPSULE PO SCH (09:15)
[2017-05-20] MEDS ORDERED: LIDOCAINE HCL/PF 1% 2 ML VIAL INJ ONE (12:00)
[2017-05-20] MEDS: INSULIN ASPART 100 UNITS/ML SQ PRN ×2 (13:03→18:12)
[2017-05-20] MEDS: CefTRIAXone 1 GM/DEXTROSE 50 ML IV SCH (14:14)
[2017-05-20 15:44] VITALS: BP 124/61
[2017-05-20 19:27] VITALS: BP 126/61
[2017-05-20] MEDS: ATORVASTATIN CALCIUM 20 MG TABLET PO SCH (21:38)
[2017-05-21 00:04] VITALS: BP 103/61
[2017-05-21 04:35] VITALS: BP 111/55
[2017-05-21] MEDS: OxyCODONE HCL/ACETAMINOPHEN 5-325 MG TABLET PO PRN (05:10)
[2017-05-21] MEDS: NYSTATIN 500,000 UNITS/5 ML SUSPENSION UDCUP PO SCH ×3 (05:10→18:03)
[2017-05-21 05:22] LABS: GLUCOSE,POINT OF CARE 104 MG/DL (70-110)
[2017-05-21 05:27] LABS: GLUCOSE,POINT OF CARE 105 MG/DL (70-110)
[2017-05-21 05:28] LABS: GLUCOSE,POINT OF CARE 119 MG/DL (70-110)
[2017-05-21] MEDS: INSULIN ASPART 100 UNITS/ML SQ PRN ×3 (05:47→18:06)
[2017-05-21 06:43] LABS: EOSINOPHILS % (AUTO) 0.2 % (1.0-6.0); HEMATOCRIT 30.2 % (41-53); HEMOGLOBIN 10.1 g/dL (13.5-17.5); LYMPHOCYTES # (AUTO) 0.1 K/uL (1.0-4.8); LYMPHOCYTES % (AUTO) 1.7 % (22.0-44.0); MEAN CORPUSCULAR HEMOGLOBIN 31.2 pg (26.0-34.0); MEAN CORPUSCULAR HGB CONC 33.3 G/dL (31.0-37.0); MEAN CORPUSCULAR VOLUME 94 fL (80-100); MONOCYTES # (AUTO) 0.1 K/uL (0.1-1.0); MONOCYTES % (AUTO) 1.2 % (2.0-9.0); NEUTROPHILS # (AUTO) 8.1 K/uL (1.8-7.7); NEUTROPHILS % (AUTO) 96.9 % (40.0-70.0); PLATELET COUNT (AUTO) 182 K/uL (150-450); RED BLOOD CELL COUNT(AUTO) 3.22 MIL/uL (4.50-5.90); RED CELL DISTRIBUTION WIDTH 18.2 % (11.5-14.5); WHITE BLOOD COUNT (AUTO) 8.3 K/uL (4.5-11.0)
[2017-05-21 06:51] LABS: CREATININE 2.63 mg/dL (0.60-1.30); POTASSIUM 3.8 mmol/L (3.5-5.1)
[2017-05-21 08:23] VITALS: BP 118/56
[2017-05-21] MEDS: HEPARIN SODIUM,PORCINE 5,000 UNITS/ML VIAL SQ SCH ×2 (08:23→20:55)
[2017-05-21] MEDS: DOCUSATE SODIUM 100 MG CAPSULE PO SCH ×2 (08:23→20:54)
[2017-05-21] MEDS: ASPIRIN 81 MG CHEWABLE TABLET PO SCH (08:24)
[2017-05-21] MEDS: PANTOPRAZOLE SODIUM 40 MG DR TABLET PO SCH (08:24)
[2017-05-21] MEDS: VITAMIN B COMP/VIT C/FOLIC ACID CAPSULE PO SCH (08:24)
[2017-05-21 11:42] VITALS: BP 148/73
[2017-05-21 15:58] VITALS: BP 132/70
[2017-05-21 16:53] LABS: GLUCOSE,POINT OF CARE 86 MG/DL (70-110)
[2017-05-21 16:53] LABS: GLUCOSE,POINT OF CARE 135 MG/DL (70-110)
[2017-05-21 16:53] LABS: GLUCOSE COMMENT 1 Received Meds; GLUCOSE,POINT OF CARE 157 MG/DL (70-110)
[2017-05-21 16:53] LABS: GLUCOSE COMMENT 1 Received Meds; GLUCOSE,POINT OF CARE 145 MG/DL (70-110)
[2017-05-21 16:53] LABS: GLUCOSE COMMENT 1 Received Meds; GLUCOSE,POINT OF CARE 164 MG/DL (70-110)
[2017-05-21 16:54] LABS: GLUCOSE,POINT OF CARE 139 MG/DL (70-110)
[2017-05-21 19:31] VITALS: BP 113/63
[2017-05-21] MEDS: ATORVASTATIN CALCIUM 20 MG TABLET PO SCH (20:55)
[2017-05-21] MEDS: OXYGEN THERAPY IH SCH (20:56)
[2017-05-22 00:01] VITALS: BP 130/60
[2017-05-22] MEDS: NYSTATIN 500,000 UNITS/5 ML SUSPENSION UDCUP PO SCH ×4 (00:33→18:08)
[2017-05-22 05:16] VITALS: BP 123/68
[2017-05-22 07:53] VITALS: BP 149/78
[2017-05-22] MEDS: DOCUSATE SODIUM 100 MG CAPSULE PO SCH (08:11)
[2017-05-22] MEDS: OXYGEN THERAPY IH SCH (08:11)
[2017-05-22] MEDS: PANTOPRAZOLE SODIUM 40 MG DR TABLET PO SCH (08:11)
[2017-05-22] MEDS: VITAMIN B COMP/VIT C/FOLIC ACID CAPSULE PO SCH (08:11)
[2017-05-22] MEDS: ASPIRIN 81 MG CHEWABLE TABLET PO SCH (08:11)
[2017-05-22] MEDS: HEPARIN SODIUM,PORCINE 5,000 UNITS/ML VIAL SQ SCH (08:12)
[2017-05-22 08:22] LABS: GLUCOSE,POINT OF CARE 125 MG/DL (70-110)
[2017-05-22 11:03] VITALS: BP 133/66
[2017-05-22] MEDS: INSULIN ASPART 100 UNITS/ML SQ PRN ×2 (11:53→17:29)
[2017-05-22] MEDS: BISACODYL 10 MG RECTAL RECTAL SUPPOSITORY PR PRN (12:43)
[2017-05-22 14:55] VITALS: BP 146/72
[2017-05-22 15:02] LABS: GLUCOSE COMMENT 1 Received Meds; GLUCOSE,POINT OF CARE 148 MG/DL (70-110)
[2017-05-22] MEDS ORDERED: EPOE10003 SQ (15:06)
[2017-05-22] MEDS ORDERED: DSS100 PO (15:06)
[2017-05-22] MEDS ORDERED: HEPA500017 SQ (15:07)
[2017-05-22] MEDS ORDERED: PANT40TA25 PO (15:08)
[2017-05-22] MEDS ORDERED: VITA1TAB22 PO (15:10)
[2017-05-22] MEDS ORDERED: ACET-2247 PO (15:12)
[2017-05-22] MEDS ORDERED: AUD NEB (15:13)
[2017-05-22] MEDS ORDERED: BISA10S PR (15:14)
[2017-05-22] MEDS ORDERED: OXYC-341 PO (15:15)
[2017-05-22 19:15] VITALS: BP 154/71
[2017-05-28 06:23] LABS: GLUCOSE COMMENT 1 Received Meds; GLUCOSE,POINT OF CARE 152 MG/DL (70-110)
[2017-05-28 06:23] LABS: GLUCOSE,POINT OF CARE 110 MG/DL (70-110)
[2017-05-28 06:24] LABS: GLUCOSE COMMENT 1 Received Meds; GLUCOSE,POINT OF CARE 148 MG/DL (70-110)
== END 2017-05-22 20:00 | DRG 710 ==
LOC: EMS 17:58 → 5S 20:30
PROVIDERS: ADMIT Internal Medicine; ATTEND Internal Medicine
PROC: 0W9G3ZX Drainage of Peritoneal Cavity, Percutaneous Approach, Diagnostic (ICD-10-PCS; 2017-05-09)
PROC: 5A1D60Z (ICD-10-PCS; 2017-05-11)
PROC: 0W9B3ZZ Drainage of Left Pleural Cavity, Percutaneous Approach (ICD-10-PCS; principal; 2017-05-17)
DX: A41.59 Other Gram-negative sepsis (principal); E43 Unspecified severe protein-calorie malnutrition; I13.2 Hypertensive heart and chronic kidney disease with heart failure and with stage 5 chronic kidney disease, or end stage renal disease; J90 Pleural effusion, not elsewhere classified; N17.9 Acute kidney failure, unspecified; K65.2 Spontaneous bacterial peritonitis; B37.0 Candidal stomatitis; N18.6 End stage renal disease; I27.2 Other secondary pulmonary hypertension; R62.7 Adult failure to thrive; R18.8 Other ascites; E11.22 Type 2 diabetes mellitus with diabetic chronic kidney disease; I50.20 Unspecified systolic (congestive) heart failure; B96.89 Other specified bacterial agents as the cause of diseases classified elsewhere; I25.10 Atherosclerotic heart disease of native coronary artery without angina pectoris; I73.9 Peripheral vascular disease, unspecified; E78.5 Hyperlipidemia, unspecified; I07.1 Rheumatic tricuspid insufficiency; B96.1 Klebsiella pneumoniae [K. pneumoniae] as the cause of diseases classified elsewhere; E11.51 Type 2 diabetes mellitus with diabetic peripheral angiopathy without gangrene; K59.00 Constipation, unspecified; Z74.01 Bed confinement status; Z87.11 Personal history of peptic ulcer disease; Z91.19 Patient's noncompliance with other medical treatment and regimen; Z99.2 Dependence on renal dialysis; Z95.1 Presence of aortocoronary bypass graft; Z79.4 Long term (current) use of insulin; Z68.1 Body mass index [BMI] 19.9 or less, adult
CPT/HCPCS: 32555; 49083; 74010; 74177; 76700; 76705; 76942; 82042; 82247; 82271; 82465; 82945; 82962; 83605; 83615; 83986; 84145; 84157; 84311; 86480; 87015; 87040; 87045; 87070; 87081; 87101; 87185; 87205; 87340; 87521; 89051; 90935; 93005; 93306; 96365; 96375; 97110; 97530; 99285; J0696; J0885; J1170; J1644; J2405; J2543; J3370; J3490; J7030; J7040; J7050; J7060